=== PATIENT | female | born 1940 | race Caucasian/White ===

== ENCOUNTER → 2017-12-05 | Outpatient (CLI) | payer OTHER ==
[~2017-12-05] MED LIST: CLARITIN10 MG PO; CRANBERRY CONC500 MG PO; FOLIC ACID0.8 M1 PO; L-CARNITINE500 MG PO; LEVOTHYROXIN0.088 MG PO; MUCINEX600 MG PO; MULTI VITAMIN1 EACH PO; PROLIA60 MG/1 ML SQ; SYNTHROID100 MCG PO; VIACTIV SOFT C1 EACH PO; VITAMIN B-122500 MCG SL
== END ==
LOC: RAD 12-04 12:01
DX: Z12.31 Encounter for screening mammogram for malignant neoplasm of breast (principal)

== ENCOUNTER → 2019-01-12 | Outpatient (CLI) | payer OTHER | LOC: RAD 03:01 | DX: Z12.31 Encounter for screening mammogram for malignant neoplasm of breast (principal) ==

== ENCOUNTER → 2020-04-07 | Outpatient (CLI) | payer OTHER | LOC: BC 11:27 | PROVIDERS: ATTEND Obstetrics & Gynecology | DX: Z12.31 Encounter for screening mammogram for malignant neoplasm of breast (principal); N64.89 Other specified disorders of breast ==